=== PATIENT | male | born 1940 | race Caucasian/White ===

== ENCOUNTER 2017-09-15 23:18 | Observation (INO) | payer OTHER ==
[2017-09-15] MEDS ORDERED: NS 1,000 ML IV ONE (23:31)
--- NOTE | 2017-09-15 23:31 | EDPHY ---
H & P Stated Complaint: slurred speech since am HPI/ROS: HPI CHIEF COMPLAINT: Slurring of the speech since 10:00 a.m. HISTORY OF PRESENT ILLNESS: This patient is a 76-year-old male, does not take any daily medications states his blood pressure is usually in the 130s. He presents emergency room with slurred speech. He states around 10:00 a.m. his noticed some slurring of the speech or mumbling of the words this lasted approximately 20 minutes however she noticed throughout the day that his speech was not 100%. And then this evening around 9:00 p.m. she thought it sounds a little bit worse. Decided come to the emergency room. The patient denies any chest pain or headache. Denies shortness of breath. Denies focal numbness or tingling. Denies focal weakness. Main complaint is slurring of the speech since 10:00 a.m.. Upon arrival to the emergency room the patient does appear to have slight slurring of the speech but his does report that it has improved since this morning. There is no other focal neuro deficit. Past Medical History: Denies any significant medical history Past Surgical History: Abdominal surgery Social History: Denies drugs alcohol tobacco. Family History: Noncontributory ROS REVIEW OF SYSTEMS: A comprehensive 10 point review of systems is otherwise negative aside from elements mentioned in the history of present illness. Exam Constitutional appears well nontoxic triage nursing summary reviewed, vital signs reviewed, awake/alert. Blood pressure noted to be very high at triage. Eyes normal conjunctivae and sclera, EOMI, PERRLA. HENT normal inspection, atraumatic, moist mucus membranes, no epistaxis, neck supple/ no meningismus, no raccoon eyes. Respiratory clear to auscultation bilaterally, normal breath sounds, no respiratory distress, no wheezing. Cardiovascular rate normal, regular rhythm, no murmur, no edema, distal pulses normal. Gastrointestinal soft, non-tender, no rebound, no guarding, normal bowel sounds, no distension, no pulsatile mass. Genitourinary no CVA tenderness. Musculoskeletal no midline vertebral tenderness, full range of motion, no calf swelling, no tenderness of extremities, no meningismus, good pulses, neurovascularly intact. Skin pink, warm, & dry, no rash, skin atraumatic. Neurologic awake, alert and oriented x 3, AAOx3, moves all 4 extremities equally, motor intact, sensory intact, CN II-XII intact, normal cerebellar, normal vision, very subtle slurred speech. Otherwise unremarkable neurological exam. Cranial nerves are intact. No focal weakness. Psychiatric normal mood/affect. Heme/Lymph/Immune no lymphadenopathy. Differential Diagnosis: Includes but is not limited to in a particular order TIA, CVA, intracranial bleed, hypertensive urgency, hypertensive emergency. Medical Decision Making: Plan for this patient IV establishment blood draw, EKG , chest x-ray, CT head without contrast to rule out bleed or infarct. Will most likely need to admit for TIA versus CVA workup. Patient is not a tPA candidate symptoms started at 10:00 a.m. this morning. Re-evaluation: EKG interpretation by me on record in [facility] system. Impression time of EKG 2352. This is sinus rhythm rate of 63. No acute ischemia. No signs of cardiac arrhythmia. Unremarkable EKG. CT head without contrast for slurred speech called to me by Dr. Wilmer Mcbride. This is negative for any bleed or infarct. 1246: Patient's initial blood pressure was rather high here in the emergency room 212/110. It is improved gradually while being in the emergency room. I went over his labs as well as CT scan of his head. No evidence of bleed or acute infarct. Blood work has been reviewed he is H&H is concentrated. Does appear dehydrated. Will give a fluid bolus. His blood pressure currently is 150 systolic. He denies chest pain or headache. His neurological exam is unremarkable. He is not a tPA candidate as his slurred speech symptoms that are extremely mild started at 10:00 a.m. it is not progressed. In fact it has gotten better. 1247: I have updated the patient on need for hospital admission for further stroke rule out and risk medication. Patient will be admitted to the hospitalist service to her neurological bed. Will give full-dose aspirin if he passes bedside swallow study. Most likely need and patient MR Brain and u/s Carotids. Updated patient he agrees for admission and understands reason for admission. 1248: At this time this patient is hemodynamically stable no acute distress resting comfortably. No further progression or neurological symptoms. Source: Patient - Personal History Current Tetanus/Diphtheria Vaccine: Yes Current Tetanus Diphtheria and Acellular Pertussis (TDAP): Yes - Medical/Surgical History Hx Asthma: No Hx Chronic Respiratory Disease: No Hx Diabetes: No Hx Cardiac Disease: No Hx Renal Disease: No Hx Cirrhosis: No Hx Alcoholism: No Hx HIV/AIDS: No Hx Splenectomy or Spleen Trauma: No - Social History Smoking Status: Never smoked Constitutional: Initial Vital Signs Temperature (C) 36.7 C 09/15/17 23:22 Heart Rate 63 09/15/17 23:22 Respiratory Rate 18 09/15/17 23:22 Blood Pressure 159/99 H 09/15/17 23:22 O2 Sat (%) 94 09/15/17 23:22 O2 Delivery Mode Room Air Allergies/Adverse Reactions: No Known Allergies Allergy (Unverified 08/20/10 12:52) Home Medications: Medication Instructions Recorded NO HOME MEDS 08/20/10 TESTOSTERONE 09/15/17 Medical Decision Making - Data Points Laboratory Results: Laboratory Results 09/15/17 23:40 09/15/17 23:40 09/15/17 09/15/17 09/15/17 23:40 23:40 23:40 WBC 10.04 10^3/uL H 10^3/uL (3.80-9.50) RBC 6.71 10^6/uL H 10^6/uL (4.40-6.38) Hgb 19.5 g/dL H g/dL (13.7-17.5) POC Hgb Hct 57.6 % H % (40.0-51.0) POC Hct MCV 85.8 fL fL (81.5-99.8) MCH 29.1 pg pg (27.9-34.1) MCHC 33.9 g/dL g/dL (32.4-36.7) RDW 15.9 % H % (11.5-15.2) Plt Count 251 10^3/uL 10^3/uL (150-400) MPV 10.7 fL fL (8.7-11.7) Neut % (Auto) 66.7 % % (39.3-74.2) Lymph % (Auto) 21.4 % % (15.0-45.0) [place] % (Auto) 8.3 % % (4.5-13.0) Eos % (Auto) 2.4 % % (0.6-7.6) Baso % (Auto) 0.9 % % (0.3-1.7) Nucleat RBC Rel Count 0.0 % % (0.0-0.2) Absolute Neuts (auto) 6.70 10^3/uL H 10^3/uL (1.70-6.50) Absolute Lymphs (auto) 2.15 10^3/uL 10^3/uL (1.00-3.00) Absolute Monos (auto) 0.83 10^3/uL H 10^3/uL (0.30-0.80) Absolute Eos (auto) 0.24 10^3/uL 10^3/uL (0.03-0.40) Absolute Basos (auto) 0.09 10^3/uL 10^3/uL (0.02-0.10) Absolute Nucleated RBC 0.00 10^3/uL 10^3/uL (0-0.01) Immature Gran % 0.3 % % (0.0-1.1) Immature Gran # 0.03 10^3/uL 10^3/uL (0.00-0.10) PT 13.5 SEC SEC (12.0-15.0) INR 1.04 (0.83-1.16) POC Sodium Sodium 141 mEq/L mEq/L (134-144) POC Potassium Potassium 4.4 mEq/L mEq/L (3.5-5.2) POC Chloride Chloride 107 mEq/L mEq/L (97-110) Carbon Dioxide 22 mEq/l mEq/l (22-31) Anion Gap 12 mEq/L mEq/L (8-16) POC BUN BUN 22 mg/dL mg/dL (7-23) Creatinine 1.1 mg/dL mg/dL (0.7-1.3) POC Creatinine Estimated GFR > 60 Glucose 84 mg/dL mg/dL (70-100) POC Glucose Calcium 9.4 mg/dL mg/dL (8.5-10.4) Troponin I < 0.012 ng/mL ng/mL (0.000-0.034) 09/15/17 23:35 WBC RBC Hgb POC Hgb 20.1 gm/dL H* gm/dL (13.7-17.5) Hct POC Hct 59 % H % (40-51) MCV MCH MCHC RDW Plt Count MPV Neut % (Auto) Lymph % (Auto) [place] % (Auto) Eos % (Auto) Baso % (Auto) Nucleat RBC Rel Count Absolute Neuts (auto) Absolute Lymphs (auto) Absolute Monos (auto) Absolute Eos (auto) Absolute Basos (auto) Absolute Nucleated RBC Immature Gran % Immature Gran # PT INR POC Sodium 142 mEq/L mEq/L (134-144) Sodium POC Potassium 4.1 mEq/L mEq/L (3.3-5.0) Potassium POC Chloride 107 mEq/L mEq/L (97-110) Chloride Carbon Dioxide Anion Gap POC BUN 25 mg/dL H mg/dL (7-23) BUN Creatinine POC Creatinine 1.1 mg/dL mg/dL (0.7-1.3) Estimated GFR Glucose POC Glucose 89 mg/dL mg/dL (70-100) Calcium Troponin I Medications Given: Discontinued Medications Sodium Chloride (Ns) 1,000 mls @ 0 mls/hr IV ONCE ONE; Wide Open PRN Reason: Protocol Stop: 09/15/17 23:32 Last Admin: 09/15/17 23:55 Dose: 1,000 mls Point of Care Test Results: 09/15/17 23:35 POC Sodium 142 POC Potassium 4.1 POC Chloride 107 POC BUN 25 H POC Creatinine 1.1 POC Glucose 89 Departure - Departure Disposition: [facility] Inpatient Acute Clinical Impression: Slurred speech Condition: Fair Referrals: Patient,NotPresent [Unknown] - As per Instructions
--- NOTE | 2017-09-15 23:56 | CPEKG ---
Heart Rate: 63 RR Interval: 952 P-R Interval: 188 QRSD Interval: 88 QT Interval: 408 QTC Interval: 418 P [place]: 56 QRS [place]: 2 T Wave [place]: 32 EKG Severity - NORMAL ECG - EKG Impression: SINUS RHYTHM Electronically Signed By: Alvarez Garcia 16-Sep-2017 07:09:57
[2017-09-15 23:57] LABS: % IMMATURE GRANULYOCYTES 0.3 % (0.0-1.1); ABSOLUTE IMMATURE GRANULOCYTES 0.03 10^3/uL (0.00-0.10); ADD DIFF? NO; ADD MORPH? NO; ADD SCAN? NO; ATYPICAL LYMPHOCYTE FLAG 10 (0-99); FRAGMENT RBC FLAG 0 (0-99); HEMATOCRIT 57.6 % (40.0-51.0); HEMOGLOBIN 19.5 g/dL (13.7-17.5); LEFT SHIFT FLG 0 (0-99); LIPEMIA HEMOLYSIS FLAG 90 (0-99); MEAN CELL HEMOGLOBIN 29.1 pg (27.9-34.1); MEAN CELL HEMOGLOBIN CONCENTR. 33.9 g/dL (32.4-36.7); MEAN CELL VOLUME 85.8 fL (81.5-99.8); MEAN PLATELET VOLUME 10.7 fL (8.7-11.7); PLATELET CLUMPS FLAG 0 (0-99); PLATELET COUNT 251 10^3/uL (150-400); RED BLOOD CELL COUNT 6.71 10^6/uL (4.40-6.38); RED CELL DISTRIBUTION WIDTH 15.9 % (11.5-15.2)
[2017-09-16 00:12] LABS: ANION GAP 12 mEq/L (8-16); CALCIUM 9.4 mg/dL (8.5-10.4); CARBON DIOXIDE 22 mEq/l (22-31); CHLORIDE 107 mEq/L (97-110); CREATININE 1.1 mg/dL (0.7-1.3); GLOMERULAR FILTRATION RATE > 60; GLUCOSE 84 mg/dL (70-100); POTASSIUM 4.4 mEq/L (3.5-5.2); SODIUM 141 mEq/L (134-144)
[2017-09-16 00:14] LABS: INR 1.04 (0.83-1.16); PROTIME(PATIENT) 13.5 SEC (12.0-15.0)
[2017-09-16 00:23] LABS: TROPONIN I < 0.012 ng/mL (0.000-0.034)
[2017-09-16] MEDS ORDERED: ONDANSETRON 4 MG/2 ML VIAL IVP PRN (00:41)
[2017-09-16] MEDS ORDERED: ACETAMINOPHEN 325 MG TAB PO PRN (00:41)
[2017-09-16] MEDS ORDERED: ASPIRIN EC 325 MG TAB PO ONE (00:45)
[2017-09-16] MEDS ORDERED: NS 1,000 ML IV SCH (00:45)
[2017-09-16] MEDS ORDERED: LABETALOL HCL 5 MG/ML 20 ML MDV IVP PRN (00:48)
--- NOTE | 2017-09-16 02:58 | PDGENHP ---
History and Physical - Chief Complaint slurred speech - History of Present Illness Source - Patient provides history and appears reliable. HPI - Pleasant 76 yo M who denies any pmhx presents to ED today with complaints of slurred speech starting approximately 830am. Patient denies any confusion or difficulties with comprehension. felt he appeared to have some garbled speech. She did not note any facial drooping/drooling. Patient does feel that during these episodes it felt like his tongue was very heavy. Patient denies any focal weakness in his extremities. Patient/ consulted via telephone with provider but was not recommended to go to the ER emergently. Speech seemed to improve throughout the day however symptoms recurred and patient presented to ED for evaluation mostly because he was having a headache and never has them. He denies any visual changes or photophobia. Patient denies numbness/ tingling, focal weakness. Patient reports symptoms have completely resolved. FHx neg for CVA. In the ED patient was noted to have an initial BP of 212/110. it improved without any intervention. History Information - Allergies/Home Medication List Allergies/Adverse Reactions: No Known Allergies Allergy (Unverified 08/20/10 12:52) Home Medications: TESTOSTERONE 09/15/17 [Last Taken Unknown] Aspirin EC [Aspirin EC 81 mg (*)] 81 mg PO DAILY 09/16/17 [Last Taken Unknown] I have personally reviewed and updated: family history, medical history, social history, surgical history - Past Medical History Additional medical history: low testosterone - Surgical History Additional surgical history: abdominal surgery - removal of benign mass age 30s - Family History Additional family history: father - cAD, CHF. mother - MO age 71. 5 children who are healthy - Social History Smoking Status: Never smoked Alcohol Use: None Drug Use: None Additional social history: . Lives with . COR FULL but no prolonged intubation. Abrahan Perales to act as proxy if needed. Review of Systems Review of Systems: ROS: 10pt was reviewed & negative except for what was stated in HPI & below Physical Exam Physical Exam: Selected Entries 09/15/17 09/15/17 23:22 23:25 Blood Pressure Automatic Method Heart Rate 63 Respiratory 18 Rate O2 Sat (%) 94 Temperature (C) 36.7 C Blood Pressure 159/99 H 212/110 H Mean Arterial 119 H 144 H Pressure (MAP) O2 Delivery Room Air Mode Temperature Oral Source Temp Pulse Resp BP Pulse Ox 36.3 C 61 16 165/99 H 92 09/16/17 02:04 09/16/17 02:04 09/16/17 02:04 09/16/17 02:04 09/16/17 02:04 Constitutional: no apparent distress, appears nourished Eyes: PERRL, anicteric sclera, EOMI Ears, Nose, Mouth, Throat: dry mucous membranes Cardiovascular: regular rate and rhythym, no murmur, rub, or gallop, No edema Peripheral Pulses: 1+: dorsalis-pedis (R), dorsalis-pedis (L) Respiratory: no respiratory distress, no rales or rhonchi, clear to auscultation Gastrointestinal: normoactive bowel sounds, soft, non-tender abdomen, no palpable masses Genitourinary: no bladder tenderness, No alejandre in urethra Skin: warm, normal color Musculoskeletal: full muscle strength, no muscle tenderness Neurologic: AAOx3, sensation intact bilaterally, CN II-XII Intact, other ( occasional word is slightly slurred but speech is fluid. no aphasia.), No weakness, No numbness, No facial droop Psychiatric: interacting appropriately, not anxious, thought process linear, No poor insight, No poor judgement, No poor memory Lab Data & Imaging Review 09/16/17 04:36 09/16/17 04:36 WBC 10.04 10^3/uL (3.80-9.50) H 09/15/17 23:40 RBC 6.71 10^6/uL (4.40-6.38) H 09/15/17 23:40 Hgb 19.5 g/dL (13.7-17.5) H 09/15/17 23:40 POC Hgb 20.1 gm/dL (13.7-17.5) H* 09/15/17 23:35 Hct 57.6 % (40.0-51.0) H 09/15/17 23:40 POC Hct 59 % (40-51) H 09/15/17 23:35 MCV 85.8 fL (81.5-99.8) 09/15/17 23:40 MCH 29.1 pg (27.9-34.1) 09/15/17 23:40 MCHC 33.9 g/dL (32.4-36.7) 09/15/17 23:40 RDW 15.9 % (11.5-15.2) H 09/15/17 23:40 Plt Count 251 10^3/uL (150-400) 09/15/17 23:40 MPV 10.7 fL (8.7-11.7) 09/15/17 23:40 Neut % (Auto) 66.7 % (39.3-74.2) 09/15/17 23:40 Lymph % (Auto) 21.4 % (15.0-45.0) 09/15/17 23:40 [place] % (Auto) 8.3 % (4.5-13.0) 09/15/17 23:40 Eos % (Auto) 2.4 % (0.6-7.6) 09/15/17 23:40 Baso % (Auto) 0.9 % (0.3-1.7) 09/15/17 23:40 Nucleat RBC Rel Count 0.0 % (0.0-0.2) 09/15/17 23:40 Absolute Neuts (auto) 6.70 10^3/uL (1.70-6.50) H 09/15/17 23:40 Absolute Lymphs (auto) 2.15 10^3/uL (1.00-3.00) 09/15/17 23:40 Absolute Monos (auto) 0.83 10^3/uL (0.30-0.80) H 09/15/17 23:40 Absolute Eos (auto) 0.24 10^3/uL (0.03-0.40) 09/15/17 23:40 Absolute Basos (auto) 0.09 10^3/uL (0.02-0.10) 09/15/17 23:40 Absolute Nucleated RBC 0.00 10^3/uL (0-0.01) 09/15/17 23:40 Immature Gran % 0.3 % (0.0-1.1) 09/15/17 23:40 Immature Gran # 0.03 10^3/uL (0.00-0.10) 09/15/17 23:40 PT 13.5 SEC (12.0-15.0) 09/15/17 23:40 INR 1.04 (0.83-1.16) 09/15/17 23:40 POC Sodium 142 mEq/L (134-144) 09/15/17 23:35 Sodium 141 mEq/L (134-144) 09/15/17 23:40 POC Potassium 4.1 mEq/L (3.3-5.0) 09/15/17 23:35 Potassium 4.4 mEq/L (3.5-5.2) 09/15/17 23:40 POC Chloride 107 mEq/L (97-110) 09/15/17 23:35 Chloride 107 mEq/L (97-110) 09/15/17 23:40 Carbon Dioxide 22 mEq/l (22-31) 09/15/17 23:40 Anion Gap 12 mEq/L (8-16) 09/15/17 23:40 POC BUN 25 mg/dL (7-23) H 09/15/17 23:35 BUN 22 mg/dL (7-23) 09/15/17 23:40 Creatinine 1.1 mg/dL (0.7-1.3) 09/15/17 23:40 POC Creatinine 1.1 mg/dL (0.7-1.3) 09/15/17 23:35 Estimated GFR > 60 09/15/17 23:40 Glucose 84 mg/dL (70-100) 09/15/17 23:40 POC Glucose 89 mg/dL (70-100) 09/15/17 23:35 Calcium 9.4 mg/dL (8.5-10.4) 09/15/17 23:40 Troponin I < 0.012 ng/mL (0.000-0.034) 09/15/17 23:40 Imaging Review: CT head - prelim report neg. Carotid doppler - preliminary report discussed with Radiology. ulcerated plaque in the L bulb and mod-severe stenosis ICA. EKG Interpretation: Positive for: normal sinsus rhythm EKG additional interpertation: NSR 60s. no acute ST changes. QTc 418. Assessment & Plan Assessment: 1. TIA - symptoms at this time resolved. no focal findings on exam. concern for TIA vs acute CVA. CT head wo negative for acute findings. plan to further work up with carotid dopplers, MRI in AM, echo with bubble. Patient will be admitted to neuro floor with stroke protocol in place and neurochecks. patient passed bedside swallow in ED and was given 325mg dosing PO ASA. sx resolved at time of arrival to ED. patient not a candidate for tpa due to timing of symptoms starting in early AM. Also BPs upon presentation were too high. 2. Slurred speech (Acute) - - plan as above. ST consultation 3. accelerated HTN - patient reports history of well controlled BPs previously SBP <140. given patient acute neurologic status will hold off on aggressive BP control to <200/<100. labetalol prn. 4. headache - likely 2/2 elevated BPs. sx resolved at this time. 5. polycythemia - likely related to fluid status patient mucous membranes are dry. IVF overnight. repeat CBC in AM. FEN - IVF. electrolyte replacement prn. cardiac diet. PPX - SCDs. COR - FULL. patient desires Abrahan Perales to act as proxy if needed. Dispo - patient admitted to observation status pending further evaluation. ADDENDUM - carotid dopplers obtained and showed an ulcerated plaque left carotid bulb and mod-severe stenosis of Left ICA. Patient will be started on a heparin gtt. I reviewed risks benefits of treatment and of not initiating gtt. Vascular surgery consultation needed. Patient currently stable.
[2017-09-16] MEDS ORDERED: HEPARIN 10,000 UNIT/10 ML MDV IVP PRN (03:52)
[2017-09-16] MEDS ORDERED: HEPARIN 10,000 UNIT/10 ML MDV IVP ONE (03:52)
[2017-09-16] MEDS ORDERED: HEPARIN/DEXTROSE 500 ML IV SCH (04:00)
[2017-09-16 04:55] LABS: % IMMATURE GRANULYOCYTES 0.2 % (0.0-1.1); ABSOLUTE IMMATURE GRANULOCYTES 0.02 10^3/uL (0.00-0.10); ADD DIFF? NO; ADD MORPH? NO; ADD SCAN? NO; ATYPICAL LYMPHOCYTE FLAG 10 (0-99); FRAGMENT RBC FLAG 0 (0-99); HEMATOCRIT 53.3 % (40.0-51.0); HEMOGLOBIN 17.5 g/dL (13.7-17.5); LEFT SHIFT FLG 0 (0-99); LIPEMIA HEMOLYSIS FLAG 80 (0-99); MEAN CELL HEMOGLOBIN 28.5 pg (27.9-34.1); MEAN CELL HEMOGLOBIN CONCENTR. 32.8 g/dL (32.4-36.7); MEAN CELL VOLUME 86.9 fL (81.5-99.8); MEAN PLATELET VOLUME 10.7 fL (8.7-11.7); PLATELET CLUMPS FLAG 0 (0-99); PLATELET COUNT 220 10^3/uL (150-400); RED BLOOD CELL COUNT 6.13 10^6/uL (4.40-6.38); RED CELL DISTRIBUTION WIDTH 14.8 % (11.5-15.2)
[2017-09-16 05:05] LABS: INR 1.12 (0.83-1.16); PROTIME(PATIENT) 14.3 SEC (12.0-15.0)
[2017-09-16 05:11] LABS: ANION GAP 8 mEq/L (8-16); CALCIUM 8.7 mg/dL (8.5-10.4); CARBON DIOXIDE 21 mEq/l (22-31); CHLORIDE 110 mEq/L (97-110); GLOMERULAR FILTRATION RATE > 60; GLUCOSE 75 mg/dL (70-100); POTASSIUM 4.2 mEq/L (3.5-5.2); SODIUM 139 mEq/L (134-144)
[2017-09-16 05:13] LABS: APTT 29.8 SEC (23.0-38.0)
[2017-09-16] MEDS ORDERED: ASPIRIN 81 MG CHEWABLE TAB PO SCH (09:00)
--- NOTE | 2017-09-16 10:11 | GCON ---
[f rep st] CONSULTATION DATE OF CONSULTATION: 09/16/2017 REASON FOR ADMISSION: Slurred speech, possible TIA. HISTORY OF PRESENT ILLNESS: 76-year-old, left-handed, male admitted to the hospital last evening with complaints of slurred speech as evidenced by his . This was of sudden onset. He also was noted to have difficulty moving his tongue. He denied visual changes. He denied upper or lower extremity numbness or tingling or weakness. He denies chest pains or shortness of breath with this episode. He has had no history of similar episodes. His symptoms rapidly resolved. In the emergency room he was found to have a blood pressure of 220/110. A carotid ultrasound showed a high-grade left internal carotid artery stenosis. Surgery has been requested for further recommendations. The patient takes a daily baby aspirin. He was recommended to the start statin therapy multiple years ago and preferred to stick with the natural means. He sees Dr. Roman for primary care measures. He is on no other medications besides testosterone. He has never had issues of heart attack or strokes before. He is able to ambulate without limitation. He has no history of claudication or rest pain. He has no prior history of embolic phenomena. PAST MEDICAL HISTORY: Low testosterone. PAST SURGICAL HISTORY: Benign abdominal tumor excision. MEDICATIONS: Baby aspirin. Testosterone. ALLERGIES: No known drug allergies. SOCIAL HISTORY: Prior smoker. He is a nondrinker. He is retired. 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 He is . FAMILY HISTORY: Notable for atherosclerosis or peripheral arterial disease. REVIEW OF SYSTEMS: A 12 point review of systems notable for acute neurologic complaints only, otherwise unremarkable. PHYSICAL EXAM: VITAL SIGNS: Blood pressure currently 145/70, pulse 60, respirations 12. GENERAL: The patient is alert, appropriate, comfortable. HEENT: Pupils are equally round and reactive to light and accommodation. Extraocular muscles are intact. Tongue midline. NECK: 2+ carotid pulses without bruits. No subclavian vertebral bruits present. HEART: Regular without murmurs. LUNGS: Clear bilaterally. ABDOMEN: Soft, nontender. No pulsatile masses. No bruits. EXTREMITIES: Normal bilateral upper and lower extremities. NEUROLOGIC: Motor strength 5/5 bilateral upper and lower extremities. Sensation is normal bilateral upper and lower extremities. Cranial nerves are grossly intact. Pulses 2+ radial, brachial, carotid, femoral , popliteal, dorsalis pedis and posterior tibial pulses bilaterally. LABS: Admitting hemoglobin 20, repeat hemoglobin 18. INR 1. Electrolytes within reference range. TSH 3.97. Troponin normal. Calcium 8.7. A 12-lead EKG: Normal sinus rhythm, approximately 60 beats per minute without acute changes. Head CT per verbal report without acute findings. Carotid Doppler, again per verbal report, with high-grade left internal carotid artery stenosis greater than 70%. Images were directly reviewed on PAX. IMPRESSIONS: 1. Possible transient ischemic attack, symptoms have subsequently resolved. 2. High-grade left carotid artery stenosis. 3. Acute hypertension, currently resolved. 4. Elevated hemoglobin, resolved, with hydration. No prior history of clotting abnormality. Query testosterone use? PLAN: 1. Patient will likely be a candidate for a future left CEA based upon admitting symptoms and initial assessments. I would recommend continued anti- platelet therapy as well as blood pressure and lipid-lowering therapies. He is currently on aspirin therapy. Recommend patient follow up with Cardiology for preoperative risk assessment and stress testing prior. 2. Brain MR and CTA imaging are being planned for today. 3. Elevated hemoglobin on admission is of doubtful significance to suggest polycythemia or other underlying coagulopathy - query probable testosterone effect. 4. Will plan to see patient back in followup after above assessments completed. Care plan was reviewed with patient and hospitalist service. /[id number]/MODL [email or web address]
[2017-09-16] MEDS ORDERED: IOPAMIDOL (ISOVUE 370) 100 ML BTL IV ONE (11:15)
[2017-09-16] MEDS ORDERED: ATORVASTATIN CALCIUM 20 MG TAB PO SCH (12:45)
--- NOTE | 2017-09-16 13:39 | ECHO ---
[email or web address] [address] Main: [phone] Fax: Transthoracic Echocardiogram Name: LORENA LEGGETT MR#: [id number] Study Date: 09/16/2017 Study Time: 12:37 PM Date of : 1940 Age: 76 year(s) Height: 167.6 cm (66 in.) Weight: 71.67 kg (158 lb.) BSA: 1.81 m2 Gender: Male Examination: Echo Indication: Dysarthria, Bubble exam Image Quality: Contrast: Requested by: Jazmyn Richards BP: 145 mmHg/70 mmHg Heart Rate: Rhythm: Indication: Dysarthria, Bubble exam Procedure Staff Cattle Sprayer: Albert Banegas Reading Physician: Requesting Provider: Measurements: Chambers Valvular Assessment AV/MV Valvular Assessment TV/PV Normal Normal Normal Name Value Range Name Value Range Name Value Range Ao Reva (MM): 2.9 cm (2.2 cm-3.7 AV Vmax: 1.06 m/s (1 m/s-1.7 TR Vmax: 2.46 mm/s ( - ) cm) m/s) TR PGmax: 24 mmHg ( - ) IVSd (2D): 0.9 cm (0.6 cm-1.1 AV maxP mmHg ( - ) syst. PAP: 29 mmHg ( - ) cm) LVOT Vmax: 1.03 m/s (0.7 m/s-1.1 PV Vmax: 0.76 m/s (0.6 m/s-0.9 LVDd (2D): 4.5 cm (4.2 cm-5.9 m/s) m/s) cm) MV E Vmax: 0.51 m/s ( - ) PV PGmax: 2 mmHg ( - ) LVDs (2D): 2.8 cm (2.1 cm-4 MV A Vmax: 0.80 m/s ( - ) cm) MV E/A: 0.64 ( - ) LVPWd (2D): 0.8 cm (0.6 cm-1 cm) LVEF (2D): 68 (>=54 %) Continued Measurements: Chambers Valvular Assessment AV/MV Valvular Assessment TV/PV Name Value Name Value Name Value LADs Lon.8 cm MV E/E' Septal: 8.20 CVP (est.): 5 mmHg LA Area: 16.8 cm2 Findings: Left Ventricle: Normal size left ventricle. No LV hypertrophy. Normal global systolic LV function. EF is 68 %. No regional wall motion abnormality. Diastolic dysfunction is present. . Right Ventricle: Normal size right ventricle. Normal RV function. Patient: LORENA LEGGETT Study Date: 09/16/2017 Page 1 of 2 12:37 PM Left Atrium: The left atrium is normal in size. An agitated saline study was performed and was negative for intracardiac shunting. Right Atrium: The right atrium is normal in size. Mitral Valve: The mitral valve is normal in appearance and function. Aortic Valve: The aortic valve is tri-leaflet. Mild aortic cusp calcification is noted. There is no aortic valve regurgitation. Tricuspid Valve: Trivial to mild tricuspid valve regurgitation. The pulmonary artery pressure is normal. Pulmonic Valve: The pulmonic valve is normal in appearance and function. Aorta: The aorta is normal. Pericardium: No pericardial effusion. (No Signature Object) Patient: LORENA LEGGETT Study Date: 09/16/2017 Page 2 of 2 12:37 PM [id number]
--- NOTE | 2017-09-16 14:57 | ASMTCMCOM ---
CM Note CM Note Notes: Pt admitted with slurred speech. MD note indicates TIA vs CVA. testing underway. C/M will continue to follow for DC needs. Date Signed: 09/16/2017 02:56 PM Electronically Signed By:Vidya Patiño LCSW
[2017-09-16 15:04] VITALS: PULSE 57; RESP 20; TEMP 98.5; O2SAT 94
--- NOTE | 2017-09-16 15:33 | HOSPPROG ---
Hospitalist Progress Note Assessment/Plan: 76 yo M with hx of HTN and HLD presenting with slurred speech c/w TIA # TIA: sxs resolved, w/u including echo, brain ct (personally reviewed and no acute abnormalities), neck CTA, carotid US and brain MRI (pending). Likely related to left ICA stenosis as next # Left ICA stenosis: noted to have 75% occlusion of left ICA, appears ulcerated and borderline flow limitation noted on CT. Appreciate surgery evaluation and plan is for f/u for CEA as an OP. Will dc on dual antiplatelet and have patient f/u with cardiology for pre operative evaluation and consideration of holter monitor # HTN: continue current medications # HLD: will get repeat lipid panel, patient has been told in the past to take statin but decided against it as his had concerns it could cause dementia. Willing to take now # polycythemia: query if related to testosterone treatment and slight volume depletion, improved overnight, non smoker # observation status Patient new to my care. Care plan reviewed with Dr. Barton as above. Subjective: no significant overnight events, patient notes feeling well currently Objective: Vital Signs Temp Pulse Resp BP Pulse Ox 36.9 C 57 L 20 136/73 H 94 09/16/17 14:54 09/16/17 14:54 09/16/17 14:54 09/16/17 13:05 09/16/17 14:54 Laboratory Results 09/16/17 04:36 09/16/17 04:36 09/15/17 09/16/17 09/17/17 05:59 05:59 05:59 Intake Total 1740.5 Output Total 875 650 Balance 865.5 -650 PT 14.3 SEC (12.0-15.0) 09/16/17 04:36 INR 1.12 (0.83-1.16) 09/16/17 04:36 awake alert nad anicteric op clear rrr no mrg cta b soft nt nd no cce warm dry well perfused oriented appropriate ICD10 Worksheet Patient Problems: Problems Problem Status Onset Slurred speech Acute
[2017-09-16 15:52] VITALS: BP 182/90
[2017-09-16 16:21] LABS: CHOLESTEROL 209 mg/dL (140-220); CHOLESTEROL/HDL RATIO 6.33 RATIO (1.00-4.97); HIGH DENSITY LIPOPROTEIN 33 mg/dL (40-65); LDL/HDL RATIO 4.79 RATIO (1.00-3.64); LOW DENSITY LIPOPROTEIN 158 mg/dL (80-100); NON-HIGH DENSITY LIPOPROTEIN 176 mg/dL (90-129); TRIGLYCERIDE 92 mg/dL (40-150); VERY LOW DENSITY LIPOPROTEINS 18 mg/dL (8-25)
--- NOTE | 2017-09-16 19:06 | PDDCSUM ---
Discharge Summary Discharge Summary: Dates of service 09/15-09/16/17 Consultations: general surgery Procedures perforemd: head CT, neck CTA, brain MRI, echo Hospital course by problem: # CVA: sxs resolved, w/u including echo, brain ct (personally reviewed and no acute abnormalities), neck CTA, carotid US and brain MRI showing multiple small left sided infarcts likely related to left IcA stenosis. Surgery with plans to follow up with patient for CEA in coming days, will need outpatient evaluation by cardiology first. Was on asa priro to admission so will transition to plavix , continue statin. # Left ICA stenosis: noted to have 75% occlusion of left ICA, appears ulcerated and borderline flow limitation noted on CT with associated left sided infarcts as above. Plan for CEA after discharge. # HTN: continue current medications # HLD: will get repeat lipid panel, patient has been told in the past to take statin but decided against it as his had concerns it could cause dementia. Willing to take now and discharged home on atorvastatin # polycythemia: query if related to testosterone treatment and slight volume depletion, improved overnight, non smoker dc home f/u with cardiology and general surgery for cEA as above f/u with PCP and will need to establish care with neurology > 35 minutes spent in dc more than half in coordination of care
--- NOTE | 2017-09-17 08:51 | NEUROPROG ---
Assessment: Consultation request received this AM, but patient was discharged prior to notification of consult (consult request was placed via electronic notification system - no phone call or other notification). Objective: Vital Signs Temp Pulse Resp BP Pulse Ox 36.9 C 57 L 20 182/90 H 94 09/16/17 14:54 09/16/17 14:54 09/16/17 14:54 09/16/17 15:51 09/16/17 14:54 Laboratory Results 09/16/17 04:36 09/16/17 04:36 09/16/17 09/17/17 09/18/17 05:59 05:59 05:59 Intake Total 1740.5 Output Total 875 650 Balance 865.5 -650 PT 14.3 SEC (12.0-15.0) 09/16/17 04:36 INR 1.12 (0.83-1.16) 09/16/17 04:36 Allergies/Adverse Reactions: No Known Allergies Allergy (Unverified 08/20/10 12:52)
[2017-09-17] MEDS ORDERED: ASPIRIN EC 81 MG TAB PO SCH (09:00)
[2017-09-18 02:03] LABS: HEMOGLOBIN A1C 5.6 % (4.0-6.0)
== END 2017-09-16 16:50 | disposition home or self-care (01) ==
LOC: F3N 09-16 01:57
PROVIDERS: ADMIT Family Medicine; ATTEND Internal Medicine
DX: I63.132 Cerebral infarction due to embolism of left carotid artery (principal); R47.1 Dysarthria and anarthria; I65.22 Occlusion and stenosis of left carotid artery; I10 Essential (primary) hypertension; E78.5 Hyperlipidemia, unspecified; E86.0 Dehydration; D75.1 Secondary polycythemia
CPT/HCPCS: 70450; 70498; 70551; 71010; 93005; 93306; 93880; 96360; 97165; 99285; G0378; G8987; G8989; J1644; Q9967; 82947-QW; 85520-90

== ENCOUNTER 2017-09-18 21:51 | Emergency (ER) | payer OTHER ==
--- NOTE | 2017-09-18 22:32 | EDPHY ---
H & P Stated Complaint: flushed, hypertensive at [facility] Time Seen by Provider: 09/18/17 22:32 - Personal History Current Tetanus/Diphtheria Vaccine: Yes - Medical/Surgical History Hx Asthma: No Hx Chronic Respiratory Disease: No Hx Diabetes: No Hx Cardiac Disease: Yes Hx Renal Disease: No Hx Cirrhosis: No Hx Alcoholism: No Hx HIV/AIDS: No Hx Splenectomy or Spleen Trauma: No Other PMH: PMHx: high cholesterol, occluded coronary artery, hypertension. PSHx : Abd. surg to remove benign tumor - Social History Smoking Status: Never smoked Constitutional: Initial Vital Signs Temperature (C) 37 C 09/18/17 21:56 Heart Rate 71 09/18/17 21:56 Respiratory Rate 14 09/18/17 21:56 Blood Pressure 195/88 H 09/18/17 21:56 O2 Sat (%) 96 09/18/17 21:56 O2 Delivery Mode Room Air Allergies/Adverse Reactions: No Known Allergies Allergy (Unverified 08/20/10 12:52) Home Medications: Medication Instructions Recorded Atorvastatin Calcium [Lipitor 20 20 mg PO DAILY #30 tab 09/16/17 mg (*)] Clopidogrel Bisulfate [Plavix] 75 mg PO DAILY #30 tablet 09/16/17 Herbals/Supplements -Info Only 1 ea PO DAILY 09/16/17 Lipitor 09/18/17 Lisinopril 20 mg PO DAILY #30 tablet 09/18/17 TESTOSTERONE 09/18/17 Medical Decision Making ED Course/Re-evaluation: CHIEF COMPLAINT: Hypertension. HISTORY OF PRESENT ILLNESS: The patient is a 76-year-old male presenting with elevated blood pressure. The patient was admitted within the week because of fluctuating blood pressures. He was found to have a 75% carotid occlusion. He is followed by Dr. Barton for this and is scheduled to see a departmental secretary next week. The patient feels flushed and recorded elevated blood pressures. He is concern because of recent event of mini stroke due to occluded coronary artery. REVIEW OF SYSTEMS: A 10 point review of systems was performed and is negative with the exception of the elements mentioned in the history of present illness. PHYSICAL EXAM: HR, BP, O2 Sat, RR. Temp noted General Appearance: Alert, well hydrated, appropriate, and non-toxic appearing. Head: Atraumatic without scalp tenderness or obvious injury Eyes: Pupils equal, round, reactive to light and accommodation, EOMI, no trauma , no injection. Ears: Clear bilaterally, no perforation, normal landmarks Nose: Atraumatic, no rhinorrhea, clear. Throat: There is no erythema or exudates, no lesions, normal tonsils, mucus membranes moist. Neck: Supple, 2+ carotid upstroke, nontender, no lymphadenopathy. Respiratory: No retractions, no distress, no wheezes, and no accessory muscle use. Lungs are clear to auscultation bilaterally. Cardiovascular: Regular rate and rhythm, no murmurs, rubs, or gallops. Bilateral carotid, radial, dorsalis pedis, and posterior tibial pulses intact. Good capillary refill all extremities. Gastrointestinal: Abdomen is soft, nontender, non-distended, no masses, no rebound, no guarding, no peritoneal signs. Musculoskeletal: Normal active ROM of all extremities, atraumatic. Neurological: Alert, appropriate, and interactive. The patient has normal DTRs and non-focal cranial nerves, motor, sensory, and cerebellar exam. Skin: No rashes, good turgor, no nodules on palpation. Past medical history: Occluded coronary artery, High cholesterol, Hypertension. Past surgical history: Abdominal surgery to remove benign tumor. Family history: Noncontributory. Social history: , at bedside. MEDICAL DECISION MAKING: Patient with known carotid occlusion presents with hypertension. Patient's blood pressure here is 195/88. The patient has never been on a blood pressure medication. According to his lab work performed , his BUN was 19 and creatinine was 1.0. Patient has a normal renal function. I plan to start the patient on an LINO inhibitor, Lisinopril. There is no evidence of end organ damage. - Data Points Medications Given: Discontinued Medications Lisinopril (Zestril) 20 mg PO EDNOW ONE Stop: 09/18/17 22:42 Last Admin: 09/18/17 22:46 Dose: 20 mg Departure - Departure Disposition: Home, Routine, Self-Care Clinical Impression: Hypertension Qualifiers: Hypertension type: unspecified Qualified Code(s): I10 - Essential (primary) hypertension Condition: Good Instructions: Hypertension (ED) Additional Instructions: Follow up with your departmental secretary as scheduled next week. Take Lisinopril as directed. Return to the emergency department with new or worsening symptoms. Referrals: Morris Roman MD [Primary Care Provider] - As per Instructions Prescriptions: Lisinopril 20 mg PO DAILY #30 tablet Report Scribed for: Avelino Kunz Report Scribed by: Belinda Clay Date of Report: 09/18/17 Time of Report: 22:46
[2017-09-18] MEDS ORDERED: LISINOPRIL 20 MG TAB PO ONE (22:41)
[2017-09-18 22:48] VITALS: BP 156/93
[2017-09-18 22:59] VITALS: PULSE 65; RESP 20; TEMP 98.1; O2SAT 91
== END 2017-09-18 22:58 | disposition home or self-care (01) ==
DX: I10 Essential (primary) hypertension (principal)

== ENCOUNTER → 2017-09-26 | Outpatient (CLI) | payer OTHER | LOC: CIMAGING 07:49 | PROVIDERS: ATTEND Physician Assistant Medical | DX: I71.4 Abdominal aortic aneurysm, without rupture (principal) ==

== ENCOUNTER → 2017-10-02 | Outpatient (CLI) | payer OTHER ==
[~2017-10-02] MED LIST: REGADENOSON 0.4 MG/5 ML SYR IVP ONE
--- NOTE | 2017-10-02 17:48 | CPR ---
[f rep st] NONINVASIVE CARDIAC PROCEDURE REPORT PROCEDURE: Lexiscan nuclear stress test. ORDERING PROVIDER: CLARITA Larose REASON FOR STUDY: Presurgical. He does have a history of coronary artery disease. PRE: Resting EKG shows a sinus rhythm with a rate of 74, resting blood pressure 140/90, oxygen satur ation 94%. He is asymptomatic prior to imaging. STRESS PORTION: Lexiscan was injected rapidly, followed by saline flush. Cardiolite was then inject ed, followed by saline flush. EKG remained stable. He did become flushed. Heart rate 70, oxygen sa turation 96. Peak blood pressure 160/80, peak heart rate 81. RECOVERY: Resting EKG remained stable with no ischemic changes noted. Recovery blood pressure 140/8 0. Recovery heart rate 62 and regular. Oxygen saturation 95%. Flushing did subside with caffeine. At this time, he currently is stable for nuclear imaging. /[id number]/MODL
== END ==
LOC: FIMAGING 10:41
PROVIDERS: ATTEND Physician Assistant Medical
DX: Z01.810 Encounter for preprocedural cardiovascular examination (principal)
CPT/HCPCS: 78452; 93017; A9500; J2785

== ENCOUNTER 2017-10-06 06:54 | Inpatient (IN) | payer OTHER ==
[2017-10-06] MEDS ORDERED: LIDOCAINE 1% 2 ML INJ ID PRN (07:08)
[2017-10-06] MEDS ORDERED: LR 1,000 ML IV ONE (07:08)
[2017-10-06] MEDS ORDERED: BUPIVACAINE 0.5% 30 ML SDV ONE ×2 (07:54→13:53)
[2017-10-06] MEDS ORDERED: THROMBIN (BOVINE) 5,000 UNIT VIAL TP ONE ×2 (07:54→13:53)
[2017-10-06] MEDS ORDERED: MIDAZOLAM 2 MG/2 ML VIAL IVP ONE (08:26)
--- NOTE | 2017-10-06 08:27 | PDANEPAE ---
ANE History of Present Illness here for L CEA ANE Past Medical History - Cardiovascular History Hx Hypertension: Yes Hx Arrhythmias: No Hx Chest Pain: No Hx Coronary Artery / Peripheral Vascular Disease: No Hx CHF / Valvular Disease: No Hx Palpitations: No - Pulmonary History Hx COPD: No Hx Asthma/Reactive Airway Disease: No Hx Recent Upper Respiratory Infection: No Hx Oxygen in Use at Home: No Hx Sleep Apnea: No Sleep Apnea Screening Result - Last Documented: Positive - Neurologic History Hx Cerebrovascular Accident: Yes Hx Seizures: No Hx Dementia: No Neurologic History Comment: TIA, two weeks ago. exppresive aphagia very mild mostly resolved - Endocrine History Hx Diabetes: No - Renal History Hx Renal Disorders: No - Liver History Hx Hepatic Disorders: No - Neurological & Psychiatric Hx Hx Neurological and Psychiatric Disorders: Yes Neurological / Psychiatric History Comment: mild expressive aphagia - Cancer History Hx Cancer: No - Congenital Disorder History Hx Congenital Disorders: No - GI History Hx Gastrointestinal Disorders: No - Other Health History Other Health History: none - Chronic Pain History Chronic Pain: No - Surgical History Prior Surgeries: none ANE Review of Systems Review of systems is: negative Review of Systems: - Exercise capacity Exercise capacity: >=4 METS METS (RN): 4 METS ANE Patient History - Allergies Allergies/Adverse Reactions: No Known Allergies Allergy (Verified 10/05/17 15:54) - Home Medications Home medications: home medication list seen and reviewed Home Medications: Herbals/Supplements -Info Only 1 ea PO DAILY 09/16/17 [Last Taken 10/04/17] Lipitor 09/18/17 [Last Taken 10/05/17] TESTOSTERONE IM 09/18/17 [Last Taken 10/01/17] Aspirin 81mg (*) 3 tab 10/06/17 [Last Taken 10/05/17] - NPO status NPO Status: no food or drink >8 hours NPO Since - Liquids (Date): 10/06/17 NPO Since - Liquids (Time): 06:15 NPO Since - Solids (Date): 10/05/17 NPO Since - Solids (Time): 20:00 - Smoking Hx Smoking Status: Former smoker - Family Anes Hx Family Hx Anesthesia Complications: none ANE Labs/Vital Signs - Vital Signs Blood Pressure: 105/60 Heart Rate: 55 Respiratory Rate: 16 O2 Sat (%): 94 Height: 167.64 cm Weight: 70.76 kg ANE Physical Exam - Airway Neck exam: FROM Mallampati Score: Class 2 Mouth exam: normal dental/mouth exam - Pulmonary Pulmonary: no respiratory distress - Cardiovascular Cardiovascular: regular rate and rhythym - ASA Status ASA Status: III ANE Anesthesia Plan Anesthesia Plan: general endotracheal anesthesia
[2017-10-06] MEDS ORDERED: PROPOFOL/EMULSION 500 MG/50 ML BOTTLE IV ONE (08:36)
[2017-10-06] MEDS ORDERED: fentaNYL 100 MCG/2 ML INJ ONE ×5 (08:36→13:45)
--- NOTE | 2017-10-06 08:46 | PDHPUP ---
History & Physical Update H&P update statement: This history and physical update is based on an assessment of the patient which was completed after admission or registration (within 24 hours), but prior to the surgery/procedure. H&P update: H&P reviewed & patient examined, no change in patient's condition since H&P completed
[2017-10-06] MEDS ORDERED: ACETAMINOPHEN 325 MG TAB PO PRN (08:47)
[2017-10-06] MEDS ORDERED: ONDANSETRON 4 MG/2 ML VIAL IVP PRN ×2 (08:47→10:03)
[2017-10-06] MEDS ORDERED: HYDROCODONE/APAP 5/325 TAB PO PRN (08:47)
--- NOTE | 2017-10-06 08:47 | POSTOPPROG ---
Post Op Note Date of Operation: 10/06/17 Surgeon: Kei Barton Broadcast Operations Director: Piyush Rose Anesthesiologist: Allen Galloway Anesthesia: GET(General Endotracheal) Pre-op Diagnosis: Left carotid stenosis Post-op Diagnosis: Same Procedure: Left CEA with dacron patch angioplasty Findings: cheesy, friable plaque with ulceration Inf/Abcess present in the surg proc area at time of surgery?: No EBL: Minimal Specimen(s): plaque
[2017-10-06] MEDS ORDERED: HYDROmorphONE/DILAUDID 1 MG/ML INJ IVP PRN (10:03)
[2017-10-06] MEDS ORDERED: PROMETHAZINE HCL 25 MG/ML INJ IVP PRN (10:03)
[2017-10-06] MEDS ORDERED: fentaNYL 100 MCG/2 ML INJ IVP PRN ×2 (10:03→14:34)
[2017-10-06] MEDS ORDERED: DEXAMETHASONE 4 MG/ML VIAL IVP PRN (10:03)
[2017-10-06] MEDS ORDERED: ALBUTEROL 3 ML DEYVIAL IH PRN (10:03)
[2017-10-06] MEDS ORDERED: NALOXONE HCL 0.4 MG/ML INJ IVP PRN ×2 (10:03→14:34)
--- NOTE | 2017-10-06 13:03 | POSTANESTH ---
Post Anesthetic Evaluation Cardiovascular Status: Normal, Stable Respiratory Status: Normal, Stable Level of Consciousness/Mental Status: Can Participate in Eval Pain Control: Adequate, Prn Tx Ordered Nausea/Vomiting Control: Adequate, Prn Tx Ordered Complications Possibly Related to Anesthesia: None Noted
[2017-10-06] MEDS ORDERED: HYDROmorphONE/DILAUDID 1 MG/ML INJ ONE (13:29)
--- NOTE | 2017-10-06 13:39 | GOP ---
[f rep st] OPERATIVE REPORT DATE OF OPERATION: 10/06/2017 SURGEON: Kei Barton MD LEGAL SECRETARY: Piyush Rose MD ANESTHESIA: General. ANESTHESIOLOGIST: Allen Galloway MD PREOPERATIVE DIAGNOSIS: Symptomatic left carotid stenosis. POSTOPERATIVE DIAGNOSIS: Symptomatic left carotid stenosis. PROCEDURE PERFORMED: Left carotid endarterectomy, with Dacron patch angioplasty. FINDINGS: Extremely friable atheromatous plaque. INDICATIONS: 76-year-old male admitted with a recent stroke. He has had multiple crescendo episodes prior and subsequent. Imaging studies disclosed a high-grade left carotid stenosis with ulceration. He was discharged on plavix for thrombosis management. He is undergoing surgical repair at this time. Risks and benefits were explained including but not limited to bleeding, infection, recurrent stenosis, stroke, nerve injury, as well as other cardiorespiratory events. All questions were answered. He desires to proceed. DESCRIPTION OF PROCEDURE: General anesthesia was induced. Ultrasonography was used to identify the carotid bifurcation, which was sitting multiple centimeters below the angle of the mandible. Local anesthetic was infiltrated. An oblique incision was created within skin lines. The platysma muscle was divided. Subplatysmal skin flaps were created. The anterior border of the sternocleidomastoid muscle was divided, allowing exposure toward the facial vein , which was circumferentially encompassed and divided between suture ligatures. The carotid artery was dissected out. The common carotid artery was soft, without calcific plaque. The internal and external artery branches, as well as the superior thyroid artery branches, were all circumferentially encompassed with vessel loops as well. The internal carotid artery was notably small in caliber and also soft. The bifurcation ulceration was easily visible within the anterior portion of the carotid bulb. A heparin bolus was administered. Occluding clamps were applied. A longitudinal carotid arteriotomy was performed through the internal carotid artery. The cheesy ulcerative plaque was endarterectomized and removed in its entirety. A nice, smooth, tapering endpoint was obtained within the internal carotid artery. A solitary posterior tacking suture was placed. The artery was back-bled, showing excellent retrograde blood flow. Loose fronds were all individually retrieved. A Dacron patch was secured to the arteriotomy site and closed with a competing 6-0 Prolene suture. The arteries were all forward-bled and back-bled. Antegrade flow was opened initially through the external carotid artery, followed by returning of blood flow through the internal carotid artery. Satisfactory hemostasis was assured throughout. The hypoglossal nerve was left intact throughout the dissection, as was the vagus nerve. The neck was closed in layers with absorbable sutures followed by Dermabond. The patient was taken to recovery uneventfully moving all 4 extremities well. /[id number]/MODL MTDD
[2017-10-06] MEDS ORDERED: PROPOFOL 200 MG/20 ML VIAL ONE (13:46)
[2017-10-06] MEDS ORDERED: THROMBIN (BOVINE) 20,000 UNIT SPRAY TP ONE (14:13)
--- NOTE | 2017-10-06 14:19 | PDANEPAE ---
ANE History of Present Illness neck hematoma left ANE Past Medical History - Cardiovascular History Hx Hypertension: Yes Hx Arrhythmias: No Hx Chest Pain: No Hx Coronary Artery / Peripheral Vascular Disease: No Hx CHF / Valvular Disease: No Hx Palpitations: No - Pulmonary History Hx COPD: No Hx Asthma/Reactive Airway Disease: No Hx Recent Upper Respiratory Infection: No Hx Oxygen in Use at Home: No Hx Sleep Apnea: No Sleep Apnea Screening Result - Last Documented: Positive - Neurologic History Hx Cerebrovascular Accident: Yes Hx Seizures: No Hx Dementia: No Neurologic History Comment: TIA, two weeks ago. exppresive aphagia very mild mostly resolved - Endocrine History Hx Diabetes: No - Renal History Hx Renal Disorders: No - Liver History Hx Hepatic Disorders: No - Neurological & Psychiatric Hx Hx Neurological and Psychiatric Disorders: Yes Neurological / Psychiatric History Comment: mild expressive aphagia - Cancer History Hx Cancer: No - Congenital Disorder History Hx Congenital Disorders: No - GI History Hx Gastrointestinal Disorders: No - Other Health History Other Health History: none - Chronic Pain History Chronic Pain: No - Surgical History Prior Surgeries: none ANE Review of Systems Review of Systems: - Exercise capacity METS (RN): 4 METS ANE Patient History - Allergies Allergies/Adverse Reactions: No Known Allergies Allergy (Verified 10/05/17 15:54) - Home Medications Home Medications: Herbals/Supplements -Info Only 1 ea PO DAILY 09/16/17 [Last Taken 10/04/17] Lipitor 09/18/17 [Last Taken 10/05/17] TESTOSTERONE IM 09/18/17 [Last Taken 10/01/17] Aspirin 81mg (*) 3 tab 10/06/17 [Last Taken 10/05/17] - NPO status NPO Since - Liquids (Date): 10/06/17 NPO Since - Liquids (Time): 06:15 NPO Since - Solids (Date): 10/05/17 NPO Since - Solids (Time): 20:00 - Smoking Hx Smoking Status: Former smoker - Family Anes Hx Family Hx Anesthesia Complications: none ANE Labs/Vital Signs - Vital Signs Vital Signs: reviewed preoperatively; see RN documention for details Blood Pressure: 155/74 Heart Rate: 55 Respiratory Rate: 14 O2 Sat (%): 96 Height: 167.64 cm Weight: 70.76 kg ANE Physical Exam - Airway Neck exam: FROM Mallampati Score: Class 3 Mouth exam: normal dental/mouth exam - Pulmonary Pulmonary: no respiratory distress - Cardiovascular Cardiovascular: regular rate and rhythym - ASA Status ASA Status: III, E ANE Anesthesia Plan Anesthesia Plan: MAC
[2017-10-06] MEDS ORDERED: LABETALOL HCL 5 MG/ML 20 ML MDV IVP PRN (14:34)
--- NOTE | 2017-10-06 16:10 | POSTOPPROG ---
Post Op Note Date of Operation: 10/06/17 Surgeon: Kei Barton Anesthesiologist: Estrada Edward Anesthesia: IV Sedation Pre-op Diagnosis: Left neck hematoma Post-op Diagnosis: Same Indication: Postop hematoma Procedure: Drainage of left neck hematoma Findings: Diffuse plavix type oozing - no discrete bleeding Inf/Abcess present in the surg proc area at time of surgery?: No EBL: hematoma - minimal active Complications: no immediate Specimen(s): none
[2017-10-06 17:57] LABS: ANION GAP 13 mEq/L (8-16); CALCIUM 8.6 mg/dL (8.5-10.4); CARBON DIOXIDE 22 mEq/l (22-31); CHLORIDE 104 mEq/L (97-110); GLOMERULAR FILTRATION RATE > 60; GLUCOSE 170 mg/dL (70-100); POTASSIUM 5.1 mEq/L (3.5-5.2); SODIUM 139 mEq/L (134-144)
[2017-10-06] MEDS ORDERED: IOPAMIDOL (ISOVUE 370) 100 ML BTL IV ONE (18:00)
--- NOTE | 2017-10-06 18:39 | SOAPPROG ---
SOAP Progress Note Assessment/Plan: Assessment:s/p left CEA with dacron patch angioplasty (prior CVA). underwent neck re-exploration for postop plavix bleeding - no discrete bleeding identified. persistent oozing in PACU - PLT ordered and administered. in PACU - neuro alert, appropriate, marginal mandib weakness approp postop, tongue midline, speech normal, BUE/BLE normal. patient transferred to PCU - nursing staff noted facial droop and had appropriate concern for possible CVA - sent to CT - seen shortly thereafter in [facility] - neuro exam unchanged from PACU earlier - scans discontinued. patient otherwise without complaints. minimal pain. no difficulty swallowing. vitals normal. neuro alert and appropriate. PERRLA/EOMI. tongue midline. left jaw palsy (MMN) appropriate. speech appropriate/normal postop. neck incision clean, unchanged swelling from PACU, soft, nontender. trachea midline. doing well overall. no further evidence of ongoing bleeding. no clinical evidence of CVA. cont supportive care. will hold off ASA today. diet as tolerated. ambulate this evening. care plan reviewed with patient, and nursing staff at bedside. Plan: 10/06/17 18:33 Objective: Vital Signs Temp Pulse Resp BP Pulse Ox 36.4 C 55 L 16 116/53 L 95 10/06/17 15:54 10/06/17 14:19 10/06/17 16:50 10/06/17 16:50 10/06/17 17:02 Laboratory Results 10/06/17 17:30 10/05/17 10/06/17 10/07/17 05:59 05:59 05:59 Intake Total 2500 Output Total 15 Balance 2485 ICD10 Worksheet Patient Problems: Problems Problem Status Onset Slurred speech Acute
--- NOTE | 2017-10-07 04:26 | GOP ---
[f rep st] OPERATIVE REPORT DATE OF OPERATION: 10/06/2017 SURGEON: Kei Barton MD ANESTHESIA: MAC. ANESTHESIOLOGIST: Dr. Edward. PREOPERATIVE DIAGNOSIS: Postoperative left neck hematoma. POSTOPERATIVE DIAGNOSIS: Postoperative left neck hematoma. PROCEDURE PERFORMED: Incision and drainage of left neck hematoma. FINDINGS: Non-specific postop bleeding consistent with platelet dysfunction/ plavix effect. INDICATIONS: 76-year-old male status post left carotid endarterectomy. He had been on perioperative Plavix for a recent stroke. He developed an enlarging neck hematoma while in PACU. He is undergoing surgical repair at this time. Risks and benefits were explained of bleeding, infection, and recurrence. All questions were answered. He desires to proceed. DESCRIPTION OF PROCEDURE: Monitored anesthesia was started. Additional local anesthetic was infiltrated. The prior incision was reopened. A tense neck hematoma was evacuated. The neck was further explored. No discrete areas of bleeding were identified. There were areas of subtle oozing from random cut surfaces. The anastomosis appeared nicely hemostatic. Small oozing points along various soft tissue areas of lymph tissue and muscular tissue were touched with electrocautery. The wound was filled with spray thrombin, as well as Arixtra. Satisfactory hemostasis was obtained with no suggestion of ongoing bleeding as noted by no change in color of the instilled Arixtra powder. The neck was reclosed in layers with absorbable sutures followed by Dermabond. The patient was taken to recovery room awake uneventfully. /[id number]/MODL MTDD
[2017-10-07 07:34] VITALS: PULSE 72; TEMP 98.1
[2017-10-07] MEDS ORDERED: LISINOPRIL 20 MG TAB PO SCH (09:00)
[2017-10-07] MEDS ORDERED: Herbals/Supplements -Info Only PO SCH (09:00)
[2017-10-07] MEDS ORDERED: ATORVASTATIN CALCIUM 20 MG TAB PO SCH (09:00)
--- NOTE | 2017-10-07 09:48 | SOAPPROG ---
SOAP Progress Note Assessment/Plan: Assessment:no overnight events. no pain. no neuro complaints. no swallowing difficulties. no headaches or visual changes. no difficulty ambulating. no cp or sob. afebrile. 100/70. 80. perrla/eomi. neck ecchymosis with soft postop approp swelling. tongue midline. less left angle jaw paresis. speech normal. heart reg. lungs clear. normal bue/ble sensation/motor. doing very well. home today. asa/statin/bp control. f/u 1 wk. speech eval with outpatient followup to be arranged (mult preop crescendo cva/tia with preop deficits noted as discussed prior to surgery). care plan reviewed with pt, and nursing staff at bedside. s/p left CEA with dacron patch angioplasty (prior CVA). underwent neck re- exploration for postop plavix bleeding - no discrete bleeding identified. persistent oozing in PACU - PLT ordered and administered. in PACU - neuro alert , appropriate, marginal mandib weakness approp postop, tongue midline, speech normal, BUE/BLE normal. patient transferred to PCU - nursing staff noted facial droop and had appropriate concern for possible CVA - sent to CT - seen shortly thereafter in [place] - neuro exam unchanged from PACU earlier - scans discontinued. patient otherwise without complaints. minimal pain. no difficulty swallowing. vitals normal. neuro alert and appropriate. PERRLA/ EOMI. tongue midline. left jaw palsy (MMN) appropriate. speech appropriate/ normal postop. neck incision clean, unchanged swelling from PACU, soft, nontender. trachea midline. doing well overall. no further evidence of ongoing bleeding. no clinical evidence of CVA. cont supportive care. will hold off ASA today. diet as tolerated. ambulate this evening. care plan reviewed with patient, and nursing staff at bedside. Plan: 10/06/17 18:33 10/07/17 09:45 Objective: Vital Signs Temp Pulse Resp BP Pulse Ox 36.7 C 72 12 119/61 94 10/07/17 07:33 10/07/17 07:33 10/07/17 07:33 10/07/17 07:33 10/07/17 07:33 Laboratory Results 10/06/17 17:30 10/06/17 10/07/17 10/08/17 05:59 05:59 05:59 Intake Total 2500 Output Total 15 Balance 2486 ICD10 Worksheet Patient Problems: Problems Problem Status Onset Slurred speech Acute
--- NOTE | 2017-10-07 10:09 | GDS ---
[f rep st] DISCHARGE SUMMARY REASON FOR ADMISSION: Symptomatic left carotid stenosis. HOSPITAL COURSE: 76-year-old male with a high-grade ulcerated left carotid artery stenosis with crescendo TIA/CVA symptoms. He was admitted for a left carotid endarterectomy with Dacron patch angioplasty. He had been maintained on perioperative Plavix. Postoperatively, the patient required a reexploration for evacuation of a hematoma. At surgery, no discrete bleeding points were noted , rather diffuse Plavix type oozing. His hematoma was washed out and platelets were administered postoperatively to help with ongoing hemostasis. His recovery was otherwise unremarkable. He was discharged to home on postoperative day #1, at his baseline neurologic state. He had adequate blood pressure control and heart rate controlled with his usual home regimen and he will continue on a daily aspirin therapy rather than Plavix moving forward. He will continue with statin and lisinopril therapy. He will be seen in followup with Dr. Barton in 1 week for followup. He was seen and assessed by speech therapy with plans for further outpatient management to be arranged. Care plan was reviewed with the patient and at bedside. /[id number]/MODL MTDD
[2017-10-07 10:38] VITALS: BP 116/51; RESP 16; O2SAT 91
[2017-10-08] MEDS ORDERED: ASPIRIN 325 MG TAB PO SCH (09:00)
== END 2017-10-07 10:59 | disposition home or self-care (01) | DRG 38 ==
LOC: F2W 06:54 → F2N 15:45
PROVIDERS: ADMIT Surgery; ATTEND Surgery
PROC: [UNRECOGNIZED PROCEDURE] (2017-10-06)
PROC: 039 Upper Arteries, Drainage (ICD-10-PCS; 2017-10-06)
PROC: 03CL0ZZ Extirpation of Matter from Left Internal Carotid Artery, Open Approach (ICD-10-PCS; principal; 2017-10-06 08:30)
PROC: 03UK0JZ Supplement Right Internal Carotid Artery with Synthetic Substitute, Open Approach (ICD-10-PCS; principal; 2017-10-06 08:30)
DX: I65.22 Occlusion and stenosis of left carotid artery (principal); I97.618 Postprocedural hemorrhage of a circulatory system organ or structure following other circulatory system procedure; T45.8X5A Adverse effect of other primarily systemic and hematological agents, initial encounter; D68.32 Hemorrhagic disorder due to extrinsic circulating anticoagulants; I25.10 Atherosclerotic heart disease of native coronary artery without angina pectoris; E78.00 Pure hypercholesterolemia, unspecified; I10 Essential (primary) hypertension; N40.0 Benign prostatic hyperplasia without lower urinary tract symptoms; F17.290 Nicotine dependence, other tobacco product, uncomplicated; Z86.73 Personal history of transient ischemic attack (TIA), and cerebral infarction without residual deficits
CPT/HCPCS: 92610-GN; C1768; J0171; J1170; J1644; J2250; J2704; J3010; P9035; Q9967